=== PATIENT | male | born 1995 | race Hispanic/Latino ===

== ENCOUNTER 2022-10-23 16:43 | Emergency (ER) | payer OTHER ==
[~2022-10-23] VITALS: Ht 177.8 cm; Wt 74.8 kg
[2022-10-23] MEDS ORDERED: INVEGA9 MG (16:55)
== END 2022-10-23 17:45 | disposition home or self-care (01) ==
LOC: ER 17:37
DX: R44.0 Auditory hallucinations (principal); F41.9 Anxiety disorder, unspecified; F32.A Depression, unspecified
CPT/HCPCS: 99283

== ENCOUNTER 2024-06-04 14:09 | Emergency (ER) | payer OTHER ==
[~2024-06-04] VITALS: Ht 177.8 cm; Wt 74.8 kg
[~2024-06-04 14:09] MED LIST: INVEGA9 MG
[2024-06-04 15:05] VITALS: BP 145/87; PULSE 109; RESP 18; TEMP 97.6; O2SAT 100
[2024-06-04 15:37] LABS: BASOPHILS % 0.5 % (0.0-1.0); EOSINOPHILS # (AUTO) 0.1 (0.0-0.4); HEMATOCRIT 44.3 % (38.2-49.6); HEMOGLOBIN 15.1 g/dL (14.0-18.0); LYMPHOCYTES # (AUTO) 1.5 (1.0-3.2); LYMPHOCYTES % 19.2 % (18.0-39.1); MEAN CORPUSCULAR HEMOGLOBIN 30.7 pg (28-32); MEAN CORPUSCULAR HGB CONC 34.1 g/dL (31-35); MONOCYTES # (AUTO) 0.8 (0.2-0.8); MONOCYTES % 9.8 % (4.4-11.3); NEUTROPHILS # (AUTO) 5.5 (2.1-6.9); PLATELET COUNT 469 x10e3/uL (140-360); RED BLOOD COUNT 4.92 x10e6/uL (4.3-5.7); RED CELL DISTRIBUTION WIDTH 12.3 % (11.7-14.4); WHITE BLOOD COUNT 7.98 x10e3/uL (4.8-10.8)
[2024-06-04 15:55] LABS: ACETAMINOPHEN < 3.0 ug/mL (10-30); ETHANOL < 10.0 mg/dL (0.0-10.0); SALICYLATE < 5.0 mg/dL (0-30)
[2024-06-04 16:45] LABS: ALBUMIN 4.1 g/dL (3.5-5.0); ALBUMIN/GLOBULIN RATIO 1.4 (0.8-2.0); ANION GAP 14.6 mmol/L (8-16); BILIRUBIN,TOTAL 0.4 mg/dL (0.2-1.2); CALCIUM 9.5 mg/dL (8.4-10.2); CREATININE, SERUM 1.14 mg/dL (0.72-1.25); POTASSIUM 3.6 mmol/L (3.5-5.1)
[2024-06-04 19:18] LABS: AMPHETAMINES SCREEN,URINE NEGATIVE (NEGATIVE); BENZODIAZEPINES SCREEN,URINE NEGATIVE (NEGATIVE); CANNABINOIDS SCREEN,URINE NEGATIVE (NEGATIVE); METHADONE SCREEN, URINE NEGATIVE (NEGATIVE); OPIATES SCREEN,URINE NEGATIVE (NEGATIVE); PHENCYCLIDINE SCREEN,URINE NEGATIVE (NEGATIVE)
[2024-06-04] MEDS: DIPHENHYDRAMINE HCL INJ 50 MG/ML VIAL IV ONE (19:32)
[2024-06-04] MEDS: HALOPERIDOL LACTATE 5 MG/ML VIAL IV ONE (19:32)
[2024-06-04] MEDS: LORAZEPAM INJ 2 MG/ML VIAL IV ONE (19:32)
[2024-06-04] MEDS ORDERED: CLOZAPINE100 MG PO (20:23)
[2024-06-04] MEDS ORDERED: RISPERIDONE2 MG PO (20:23)
[2024-06-04] MEDS ORDERED: CLOZAPINE25 MG PO (20:23)
[2024-06-04] MEDS ORDERED: CLOZAPINE 150 MG PO SCH (21:00)
[2024-06-04] MEDS: RISPERIDONE 1 MG TAB PO SCH (21:32)
[2024-06-05 02:50] VITALS: PULSE 80; RESP 16; TEMP 98.5; O2SAT 98
[2024-06-05] MEDS: CLOZAPINE 25 MG PO SCH (11:21)
== END 2024-06-05 13:49 ==
LOC: ER 14:30
DX: R44.0 Auditory hallucinations (principal); F41.9 Anxiety disorder, unspecified; F32.A Depression, unspecified
CPT/HCPCS: 36415; 80053; 80307; 80320; 80329; 85025; 93005; 99284; J1200; J1630; J2060